=== PATIENT | male | born 1965 | race Caucasian/White ===

== ENCOUNTER 2018-10-30 08:49 | Emergency (ER) | payer OTHER ==
[2018-10-30] MEDS ORDERED: ASPIRIN 81 MG TABLET, CHEWABLE PO ONE (09:24)
--- NOTE | 2018-10-30 09:34 | ER Document Report ---
ED General - General Chief Complaint: Chest Tightness Stated Complaint: ALTERED MENTAL/DIFFICULTY BREATHING Time Seen by Provider: 10/30/18 09:23 Primary Care Provider: LYLA BERNABE PSYD [ALLIED HEALTH PROFESSIONAL] - Follow up as needed TERRENCE ABARCA MD [ACTIVE STAFF] - Follow up as needed JOSE SMITH MD [ACTIVE STAFF] - Follow up as needed TRAVEL OUTSIDE OF THE [place] IN LAST 30 DAYS: No - HPI Notes: 53-year-old male presents the ED for complaints of confusion, abdominal pain, feeling lightheaded that started approximately 3 hours prior to onset of coming to emergency room. is at side. Patient has had intermittent episodes of this for approximately the last year, has never been evaluated by a provider. Denies any illicit drug use, denies any new medications, new foods. Nothing precipitates these episodes of feeling lightheaded, anxious or intermittent abdominal pain. Denies fevers, chills, chest pain,palpitations, shortness of breath, dyspnea, nausea, vomiting, diarrhea, hematuria,blurred vision, double vision, loss of vision, speech changes, , syncope, headaches, wheezing, ST, URI, neck pain, weakness, bowel or bladder dysfunction, saddle anesthesia, numbness or tingling in bilateral upper or lower extremities equally, muscle paralysis, weakness in bilateral upper or lower extremities equally or rash. Denies IV drug use. Patient has recently moved from [place] to [place] within the last 6 months, does not have a primary care provider in this area. Patient also has been out of work for the last 6 months as well while his is been at home, there is a concern of possible anxiety. - Related Data Allergies/Adverse Reactions: Penicillins Allergy (Verified 10/30/18 08:50) Past Medical History - General Information source: Patient, Relative - Social History Smoking Status: Former Smoker Family History: Reviewed & Not Pertinent Review of Systems - Review of Systems Constitutional: No symptoms reported EENT: No symptoms reported Cardiovascular: No symptoms reported Respiratory: No symptoms reported Gastrointestinal: No symptoms reported Genitourinary: No symptoms reported Male Genitourinary: No symptoms reported Musculoskeletal: No symptoms reported Skin: No symptoms reported Hematologic/Lymphatic: No symptoms reported Neurological/Psychological: See HPI Physical Exam - Vital signs Vitals: Temp Pulse Resp BP Pulse Ox 97.8 F 93 18 162/98 H 99 10/30/18 08:53 10/30/18 08:53 10/30/18 08:53 10/30/18 08:53 10/30/18 08:53 - Notes Notes: PHYSICAL EXAMINATION: GENERAL: Well-appearing, well-nourished and in no acute distress. HEAD: Atraumatic, normocephalic. EYES: Pupils equal round and reactive to light, extraocular movements intact, sclera anicteric, conjunctiva are normal. ENT: Nares patent, oropharynx clear without exudates. Moist mucous membranes. NECK: Normal range of motion, supple without lymphadenopathy LUNGS: Breath sounds clear to auscultation bilaterally and equal. No wheezes rales or rhonchi. HEART: Regular rate and rhythm without murmurs ABDOMEN: Soft, nontender, nondistended abdomen. No guarding, no rebound. No masses appreciated. Musculoskeletal: Normal range of motion, no pitting or edema. No cyanosis. NEUROLOGICAL: Cranial nerves grossly intact. Normal speech, normal gait. Normal sensory, motor exams PSYCH: anxious SKIN: Warm, Dry, normal turgor, no rashes or lesions noted. Course - Re-evaluation Re-evalutation: 10/30/18 13:01 Afebrile, slightly hypertensive, male presents for evaluation of slight confusion when feeling lightheaded with abdominal pain has been bothering him intermittently over the last 6 months to 1 year. Patient is never been evaluated by medical provider. Mental health consult was initiated for concerns of anxiety. Mental health provider at bedside who did seem confident that this was a panic attack however is agreeable with having medical evaluation. CBC negative for leukocytosis or anemia, CMP negative for hepatic or renal dysfunction, no electrolyte disturbances. TSH is normal, CT head no acute findings per radiology or stroke, lesions, masses. CT abdomen pelvis negative aside from showing cholelithiasis, His lipase was normal. Chest x-ray was negative for any acute findings. 2 sets of troponin IV hours apart were negative, EKG was negative for STEMI, no ST segment elevations. Total testosterone was 550, which is well within normal limits. After much talk therapy between mental health provider and this provider, patient states that he does feel 100% better, is willing to seek out therapy after today's visit as well as following up with primary care provider. Mental health did advise patient to start BuSpar 5 mg twice daily for management of his anxiety as well as following up with primary care provider. Patient I does need to follow-up with gastroenterology and primary care provider as well as mental health provider after leaving the emergency room today. after performing a Medical Screening Examination, I estimate there is LOW risk for RUPTURED ESOPHAGUS, PNEUMOTHORAX, PULMONARY EMBOLISM, ACUTE CORONARY SYNDROME, OR THORACIC AORTIC DISSECTION, SAH, ICH thus I consider the discharge disposition reasonable. I have reevaluated this patient multiple times and no significant life threatening changes are noted. The patient and I have discussed the diagnosis and risks, and we agree with discharging home with close follow- up. We also discussed returning to the Emergency Department immediately if new or worsening symptoms occur. We have discussed the symptoms which are most concerning (e.g., bloody sputum, worsening pain or shortness of breath) that necessitate immediate return. - Vital Signs Vital signs: Temp Pulse Resp BP Pulse Ox 98.3 F 95 18 147/98 H 95 10/30/18 13:01 10/30/18 11:40 10/30/18 13:01 10/30/18 13:01 10/30/18 13:01 - Laboratory Result Diagrams: 10/30/18 09:50 10/30/18 09:50 Laboratory results interpreted by me: 10/30/18 10/30/18 09:50 10:15 Total Bilirubin 3.2 H Creatine Kinase 53 L Urine Urobilinogen 2.0 H Salicylates < 1.0 L Acetaminophen < 10 L Discharge - Discharge Clinical Impression: Anxiety, Cholelithiasis Disposition: HOME, SELF-CARE Instructions: Anxiety ([facility]), Gallbladder Disease ([facility]) Additional Instructions: Your thyroid, CBC, metabolic panel, cardiac enzymes, EKG, chest x-ray, CT of your head and CT of your abdomen and pelvis were all normal. You are diagnosed with anxiety as well as cholelithiasis. Please follow-up with a geophysical data technician, referral has been provided as well as following up with a primary care provider. Please follow-up with a mental health provider for anxiety management. Prescriptions: Buspirone HCl [Buspar 5 mg Tablet] 1 tab PO BID #60 tab Forms: Return to Work Referrals: TERRENCE ABARCA MD [ACTIVE STAFF] - Follow up as needed JOSE SMITH MD [ACTIVE STAFF] - Follow up as needed LYLA BERNABE PSYD [ALLIED HEALTH PROFESSIONAL] - Follow up as needed
--- NOTE | 2018-10-30 10:02 | RADIOLOGY REPORT (SQ) ---
EXAM DESCRIPTION: CHEST SINGLE VIEW COMPLETED DATE/TIME: 10/30/2018 9:52 am REASON FOR STUDY: cp with sob COMPARISON: None. EXAM PARAMETERS: NUMBER OF VIEWS: One view. TECHNIQUE: Single frontal radiographic view of the chest acquired. RADIATION DOSE: NA LIMITATIONS: None. FINDINGS: LUNGS AND PLEURA: No opacities, masses or pneumothorax. No pleural effusion. MEDIASTINUM AND HILAR STRUCTURES: No masses. Contour normal. HEART AND VASCULAR STRUCTURES: Cardiomegaly. BONES: No acute findings. HARDWARE: None in the chest. OTHER: No other significant finding. IMPRESSION: Cardiomegaly without acute abnormality of the lungs in AP projection. TECHNICAL DOCUMENTATION: JOB ID: [id number] [employer]- All Rights Reserved Reading location - IP/workstation name: [email or web address]
[2018-10-30 10:05] LABS: ABSOLUTE EOSINOPHILS # (AUTO) 0.1 10^3/uL (0.0-0.6); ABSOLUTE LYMPHOCYTES (AUTO) 1.8 10^3/uL (0.5-4.7); ABSOLUTE MONOCYTES (AUTO) 0.7 10^3/uL (0.1-1.4); ABSOLUTE NEUT (AUTO) 4.4 10^3/uL (1.7-8.2); BASOPHILS % (AUTO) 0.5 % (0-2); EOSINOPHILS % (AUTO) 1.2 % (0-6); HEMATOCRIT 47.8 % (37.9-51.0); HEMOGLOBIN 16.7 g/dL (13.5-17.0); LYMPHOCYTES % (AUTO) 25.5 % (13-45); MEAN CORPUSCULAR HEMOGLOBIN 31.2 pg (27.0-33.4); MEAN CORPUSCULAR VOLUME 89 fl (80-97); MONOCYTES % (AUTO) 10.4 % (3-13); PLATELET COUNT 272 10^3/uL (150-450); RED BLOOD COUNT 5.35 10^6/uL (4.35-5.55); RED CELL DISTRIBUTION WIDTH 13.1 % (11.5-14.0); SEGMENTED NEUTROPHILS % (AUTO) 62.4 % (42-78); TOTAL CELLS COUNTED % (AUTO) 100 %; WHITE BLOOD COUNT 7.1 10^3/uL (4.0-10.5)
[2018-10-30 10:13] LABS: INTERNATIONAL RATION (INR) 1.17
[2018-10-30 10:29] LABS: APPEARANCE,URINE CLEAR; BILIRUBIN,URINE NEGATIVE (NEGATIVE); COLOR,URINE YELLOW; GLUCOSE, URINE NEGATIVE (NEGATIVE); KETONES,URINE NEGATIVE (NEGATIVE); LEUKOCYTE ESTERASE,URINE NEGATIVE (NEGATIVE); NITRITE,URINE NEGATIVE (NEGATIVE); PROTEIN,URINE NEGATIVE (NEGATIVE); URINE SPECIFIC GRAVITY 1.011
[2018-10-30 10:31] LABS: ADD MANUAL MICROSCOPIC YES
[2018-10-30 10:36] LABS: ALBUMIN 4.8 g/dL (3.5-5.0); ALKALINE PHOSPHATASE 75 U/L (38-126); ANION GAP 12 (5-19); ASPARTATE AMINO TRANSFERASE 29 U/L (17-59); BILIRUBIN,DIRECT 0.4 mg/dL (0.0-0.4); BILIRUBIN,TOTAL 3.2 mg/dL (0.2-1.3); BLOOD UREA NITROGEN 10 mg/dL (7-20); CALCIUM 9.9 mg/dL (8.4-10.2); CARBON DIOXIDE 28 mmol/L (22-30); CHLORIDE 100 mmol/L (98-107); CREATINE KINASE 53 U/L (55-170); GLUCOSE 107 mg/dL (75-110); TOTAL PROTEIN 7.7 g/dL (6.3-8.2)
[2018-10-30 10:40] LABS: ACETAMINOPHEN < 10 ug/mL (10-30); ALCOHOL < 10 mg/dL (NONE DETECTED); SALICYLATE < 1.0 mg/dL (2.0-20.0)
[2018-10-30 10:44] LABS: WBC,URINE 0-1 /HPF
[2018-10-30 10:48] LABS: CREATINE KINASE MB < 0.22 ng/mL (<4.55); TROPONIN I < 0.012 ng/mL
[2018-10-30 10:49] LABS: URINE AMPHETAMINES SCREEN NEGATIVE; URINE BARBITURATES SCREEN NEGATIVE; URINE BENZODIAZEPINES SCREEN NEGATIVE; URINE COCAINE SCREEN NEGATIVE; URINE MARIJUANA (THC) SCREEN NEGATIVE; URINE METHADONE SCREEN NEGATIVE; URINE PHENCYCLIDINE SCREEN NEGATIVE
--- NOTE | 2018-10-30 11:53 | RADIOLOGY REPORT (SQ) ---
EXAM DESCRIPTION: CT HEAD WITHOUT COMPLETED DATE/TIME: 10/30/2018 11:45 am REASON FOR STUDY: confusion COMPARISON: None. TECHNIQUE: Axial images acquired through the brain without intravenous contrast. Images reviewed wi th bone, brain and subdural windows. Additional sagittal and coronal reconstructions were generated. Images stored on PACS. All CT scanners at this facility use dose modulation, iterative reconstruction, and/or weight based d osing when appropriate to reduce radiation dose to as low as reasonably achievable (ALARA). [facility]: Dose Right [facility]: CareDose [facility]: Dose Right [facility]: Teradose 4D [facility]: [employer] RADIATION DOSE: CT Rad equipment meets quality standard of care and radiation dose reduction techniq ues were employed. CTDIvol: 53.2 mGy. DLP: 1150 mGy-cm. mGy. LIMITATIONS: None. FINDINGS: VENTRICLES: Normal size and contour. CEREBRUM: No masses. No hemorrhage. No midline shift. No evidence for acute infarction. Normal gra y/white matter differentiation. No areas of low density in the white matter. CEREBELLUM: No masses. No hemorrhage. No alteration of density. No evidence for acute infarction. EXTRAAXIAL SPACES: No fluid collections. No masses. ORBITS AND GLOBE: No intra- or extraconal masses. Normal contour of globe without masses. CALVARIUM: No fracture. PARANASAL SINUSES: No fluid or mucosal thickening. SOFT TISSUES: No mass or hematoma. OTHER: No other significant finding. IMPRESSION: No acute intracranial pathology. EVIDENCE OF ACUTE STROKE: NO. COMMENT: Quality ID # [id number]: Final reports with documentation of one or more dose reduction techniques (e.g., Automated exposure control, adjustment of the mA and/or kV according to patient size, use of iterative reconstruction technique) TECHNICAL DOCUMENTATION: JOB ID: [id number] [employer]- All Rights Reserved Reading location - IP/workstation name: [email or web address]
--- NOTE | 2018-10-30 12:04 | RADIOLOGY REPORT (SQ) ---
EXAM DESCRIPTION: CT ABD/PELVIS WITH IV ONLY COMPLETED DATE/TIME: 10/30/2018 11:46 am REASON FOR STUDY: abd pain, RUQ, LUQ COMPARISON: None. TECHNIQUE: CT scan of the abdomen and pelvis performed using helical scanning technique with dynamic intravenous contrast injection. No oral contrast. Images reviewed with lung, soft tissue, and bone windows. Reconstructed coronal and sagittal MPR images reviewed. Delayed images for evaluation of the urinary system also acquired. All images stored on PACS. All CT scanners at this facility use dose modulation, iterative reconstruction, and/or weight based d osing when appropriate to reduce radiation dose to as low as reasonably achievable (ALARA). [facility]: Dose Right [facility]: CareDose [facility]: Dose Right [facility]: Teradose 4D [facility]: [employer] CONTRAST TYPE AND DOSE: contrast/concentration: Isovue 350.00 mg/ml; Total Contrast Delivered: 99.0 ml; Total Saline Delivered: 52.1 ml RENAL FUNCTION: GFR > 60. RADIATION DOSE: CT Rad equipment meets quality standard of care and radiation dose reduction techniq ues were employed. CTDIvol: 9.6 - 14.4 mGy. DLP: 1476 mGy-cm.. LIMITATIONS: None. FINDINGS: LOWER CHEST: No significant findings. No nodules or infiltrates. LIVER: Normal size. No masses. No dilated ducts. SPLEEN: Normal size. No focal lesions. PANCREAS: No masses. No significant calcifications. No adjacent inflammation or peripancreatic fluid collections. Pancreatic duct not dilated. GALLBLADDER: Gallstones. No inflammatory changes to suggest cholecystitis. ADRENAL GLANDS: No significant masses or asymmetry. RIGHT KIDNEY AND URETER: No solid masses. No significant calcifications. No hydronephrosis or hyd roureter. LEFT KIDNEY AND URETER: No solid masses. No significant calcifications. No hydronephrosis or hydr oureter. AORTA AND VESSELS: No aneurysm. No dissection. Renal arteries, SMA, celiac without stenosis. RETROPERITONEUM: No retroperitoneal adenopathy, hemorrhage or masses. BOWEL AND PERITONEAL CAVITY: No masses or inflammatory changes. No free fluid or peritoneal masses. APPENDIX: Normal. PELVIS: No mass. No free fluid. Normal bladder. ABDOMINAL WALL: No masses. No hernias. BONES: No significant or acute findings. OTHER: No other significant finding. IMPRESSION: 1. No acute CT findings of the abdomen or pelvis to explain abdominal pain. 2. Cholelithiasis. 3. Normal appendix. TECHNICAL DOCUMENTATION: JOB ID: [id number] Quality ID # [id number]: Final reports with documentation of one or more dose reduction techniques (e.g., Au tomated exposure control, adjustment of the mA and/or kV according to patient size, use of iterative reconstruction technique) 2010 [employer]- All Rights Reserved Reading location - IP/workstation name: [email or web address]
--- NOTE | 2018-10-30 12:43 | EKG REPORT ---
SEVERITY:- ABNORMAL ECG - SINUS TACHYCARDIA LAD, CONSIDER LEFT ANTERIOR FASCICULAR BLOCK BORDERLINE T WAVE ABNORMALITIES : Confirmed by: Derrick Pop MD 30-Oct-2018 12:43:20
--- NOTE | 2018-10-30 13:10 | PSYCHOLOGICAL NOTE ---
Psych Note - Psych Note Date seen by psych provider: 10/30/18 Time seen by psych provider: 10:70 - 1140 Psych Note: Reason for consult: Panic attack Consent permissions: Patient's at bedside per patient's request Patient reports that he does not have a mental health history or any known medical issues. He reports that he sometimes does have panic attacks however does not know what his trigger is. Patient is demonstrating difficulty in concentration with psychomotor agitation. Clinician was able to engage patient in grounding techniques discussing change events of past jobs and places he lived in chronological order. Patient is noted to make continued eye contact with his which he identifies as his anchor. Clinician discussed additional techniques in involving all of the senses possible i.e. visualizing what his looks like, what her hair feels like, what her's perfume spells like etc. Patient is noted to be actively engage and visibly starts to relax during grounding techniques. Patient is alert and orientated to person, place, time and circumstance. Mood is anxious with congruent affect. Patient appears to be experiencing a panic attack i.e. psychomotor agitation, quick breathing, difficulty focusing. Patient denies suicidal homicidal ideation. Delusions are absent behaviors congruent with an intact reality based presentation i.e. organized and linear thought process. Eye contact is poor as patient does not make eye contact with . Intellectual abilities appear to be within the average range. Attention and concentration are fair. Insight, judgment, impulse control are fair. Unspecified anxiety disorder; presents with panic attack Medication recommendations per [facility]'s contracted psychiatrist DR Elisa MARINO are as follows Buspar 5mg twice daily Impression\plan: Patient is cleared from acute psychiatric services. Patient does not meet IVC criteria per [place] GS 122C. Patient has been experiencing an increase in panic attacks over the last 6 months however both patient and patient's are unable to identify stressful event or trigger. Patient was able to successfully engage patient and grounding techniques and discussed additional coping skills when experiencing panic attack. Patient is highly e ncouraged to follow-up with outpatient mental health services for continued outpatient assistance in therapy and possibly medication management. Dr. Bingham was consulted and the care management of this patient; attending physicians in agreement with recommendations and disposition.
[2018-10-30 15:09] VITALS: BP 147/98
== END 2018-10-30 15:09 | disposition home or self-care (01) ==
LOC: ER 08:49
DX: K80.20 Calculus of gallbladder without cholecystitis without obstruction (principal); F41.9 Anxiety disorder, unspecified; R07.9 Chest pain, unspecified; R41.0 Disorientation, unspecified; R10.9 Unspecified abdominal pain; R42 Dizziness and giddiness; Z87.891 Personal history of nicotine dependence
CPT/HCPCS: 36415; 70450; 71045; 74177; 80053; 80307; 81001; 82550; 82553; 83690; 84403; 84443; 84484; 85025; 85610; 85730; 93005; 93010; 99285